=== PATIENT | female | born 1940 | race Caucasian/White ===

== ENCOUNTER → 2017-05-25 | Outpatient (CLI) | payer MEDICARE ==
[~2017-05-25] MED LIST: ATORVASTATIN CA10 MG PO; BENICAR40 MG PO; NAPROXEN250 MG PO; NEXIUM40 MG PO; OCUVITE SOFTGE1 EACH PO; ULTRAM 50MG50 MG PO; VALACYCLOVIR500 MG PO
--- NOTE | 2017-05-25 14:30 | Diagnostic Imaging Report ---
PROCEDURE:HAND RIGHT 3 VIEWS TECHNIQUE:AP, lateral and oblique views right hand INDICATION:Right hand pain COMPARISON:None. FINDINGS: The right hand is intact. Marked joint space narrowing with osteophytosis and sclerosis at the base of the thumb. Joint space narrowing at the distal interphalangeal joints and metacarpophalangeal joints without juxta-articular erosion or periosteal reaction. Mild diffuse demineralization. Scapholunate joint widening. Regional soft tissue swelling over the dorsal aspect of the distal metacarpals. CONCLUSION: 1. Soft tissue swelling at the dorsal aspect of the hand without subcutaneous emphysema or foreign body. 2. 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 3. Mild scapholunate joint widening suggesting ligamentous laxity. 4. No evidence of fracture, traumatic malalignment or osteomyelitis. No foreign bodies. Dictated by: Marquez Ybarra M.D. on 05/25/2017 at 14:39 Electronically approved by: Marquez Ybarra M.D. on 05/25/2017 at 14:39
== END ==
LOC: RAD 13:10
PROVIDERS: ATTEND Family Medicine
DX: M79.641 Pain in right hand (principal)

== ENCOUNTER 2017-06-16 14:00 | Outpatient (RCR) | payer MEDICARE | END 2017-06-17 | LOC: OT 14:00 | PROVIDERS: ATTEND Specialist | DX: M19.031 Primary osteoarthritis, right wrist (principal); S60.221A Contusion of right hand, initial encounter | CPT/HCPCS: 97010 ×3; 97022; 97110 ×4; 97140 ×5; 97165; G8987; G8988 ==

== ENCOUNTER 2017-06-26 12:00 | Outpatient (RCR) | payer MEDICARE | END 2017-07-18 | LOC: OT 12:00 | PROVIDERS: ATTEND Specialist | DX: M19.031 Primary osteoarthritis, right wrist (principal); S60.221A Contusion of right hand, initial encounter | CPT/HCPCS: 97139 ==

== ENCOUNTER 2021-05-09 17:04 | Inpatient (IN) | payer MEDICARE ==
[~2021-05-09] VITALS: Ht 160 cm; Wt 59.0 kg
[2021-05-09] MEDS ORDERED: FAMOTIDINE 20 MG/2 ML VIAL IV STA (17:58)
[2021-05-09] MEDS ORDERED: ONDANSETRON HCL INJ 2MG/ML 2ML 2 MG/ML VIAL IV STA (17:58)
[2021-05-09] MEDS ORDERED: SODIUM CHLORIDE 0.9% 1000ML 1,000 ML IV SCH (18:00)
[2021-05-09] MEDS ORDERED: IOPAMIDOL 370 MG/ML 200 ML INFUS..BTL INJ ONE (18:16)
[2021-05-09] MEDS ORDERED: SODIUM CHLORIDE 0.9% 1000ML 1,000 ML ONE (20:17)
[2021-05-09] MEDS: SODIUM CHLORIDE 0.9% 1000ML 1,000 ML IV SCH ×2 (20:52→23:30)
[2021-05-09 21:00] VITALS: BP 92/59
[2021-05-09] MEDS ORDERED: SODIUM CHLORIDE 0.9% 1000ML 1,000 ML IV ONE (22:15)
[2021-05-09 23:11] VITALS: BP 107/70
[2021-05-09 23:30] VITALS: BP 107/70
[2021-05-10] VITALS (8 sets, daily range): BP systolic 92–113; BP diastolic 59–83
[2021-05-10] MEDS ORDERED: CITALOPRAM HBR20 MG PO (02:47)
[2021-05-10] MEDS ORDERED: PROAIR HFA INH8.5 GM (02:47)
[2021-05-10] MEDS ORDERED: PROMETHAZINE HC25 M1 PO (02:47)
[2021-05-10] MEDS ORDERED: OLMESARTAN MEDO20 MG PO (02:47)
[2021-05-10] MEDS ORDERED: DOXYCYCLINE MO100 MG PO (02:47)
[2021-05-10] MEDS ORDERED: CLARITIN10 M4 PO (02:47)
[2021-05-10] MEDS ORDERED: CITALOPRAM10 MG/5 ML PO ×3 (02:47→02:56)
[2021-05-10] MEDS ORDERED: CELEXA10 MG PO (02:56)
[2021-05-10 07:44] LABS: BASOPHILS % 0.1 % (0.0-1.0); EOSINOPHILS % 0.4 % (0.0-6.0); HEMATOCRIT 30.4 % (34.2-44.1); HEMOGLOBIN 9.8 g/dL (12.0-16.0); LYMPHOCYTES # (AUTO) 2.2 (1.0-3.2); LYMPHOCYTES % 27.3 % (18.0-39.1); MEAN CORPUSCULAR HGB CONC 32.2 g/dL (31-35); MONOCYTES # (AUTO) 0.9 (0.2-0.8); MONOCYTES % 11.1 % (4.4-11.3); NEUTROPHILS # (AUTO) 4.7 (2.1-6.9); NEUTROPHILS % 60.2 % (38.7-80.0); PLATELET COUNT 257 x10e3/uL (140-360); RED BLOOD COUNT 3.27 x10e6/uL (3.6-5.1); RED CELL DISTRIBUTION WIDTH 14.5 % (11.7-14.4)
[2021-05-10 08:03] LABS: ANION GAP 10.9 mmol/L (8-16); CREATININE, SERUM 2.68 mg/dL (0.57-1.11); POTASSIUM 4.9 mmol/L (3.5-5.1)
[2021-05-10] MEDS: SODIUM CHLORIDE 0.9% 1000ML 1,000 ML IV SCH (08:38)
[2021-05-10] MEDS ORDERED: ALBUTEROL SULFATE HFA 8GM INHALATION AEROSOL INH PRN (13:45)
[2021-05-10] MEDS ORDERED: REMDESIVIR 100MG 200 MG in SODIUM CHLORIDE 0.9% 100 ML IV ONE (14:30)
[2021-05-10] MEDS ORDERED: LORATADINE 10 MG PO SCH (14:30)
[2021-05-10] MEDS ORDERED: LORATADINE 10 MG TAB PO PRN (14:30)
[2021-05-10] MEDS ORDERED: DEXAMETHASONE 4 MG TAB PO SCH (15:00)
[2021-05-10] MEDS: ENOXAPARIN SOD INJ 40 MG/0.4 ML SYR SC SCH (16:46)
[2021-05-10] MEDS ORDERED: DOXYCYCLINE MONOHYDRATE 100 MG PO SCH (17:00)
[2021-05-10] MEDS: SODIUM BICARBONATE 650 MG TAB PO SCH (17:33)
[2021-05-10] MEDS: DOXYCYCLINE HYCLATE TABLET 100 MG TAB PO SCH ×2 (17:33→21:00)
[2021-05-10] MEDS: ATORVASTATIN 10 MG TAB PO SCH (20:57)
[2021-05-11] VITALS (9 sets, daily range): BP systolic 103–126; BP diastolic 61–87
[2021-05-11] MEDS: SODIUM CHLORIDE 0.9% 1000ML 1,000 ML IV SCH ×4 (02:38→21:24)
[2021-05-11 06:56] LABS: CREATININE, SERUM 1.79 mg/dL (0.57-1.11); POTASSIUM 4.5 mmol/L (3.5-5.1)
[2021-05-11 07:07] LABS: ANION GAP 11.5 mmol/L (8-16); CALCIUM 8.2 mg/dL (8.4-10.2)
[2021-05-11] MEDS ORDERED: CITALOPRAM HYDROBROMIDE 20 MG TAB PO SCH (09:00)
[2021-05-11] MEDS: DOXYCYCLINE HYCLATE TABLET 100 MG TAB PO SCH ×2 (10:04→20:20)
[2021-05-11] MEDS: SODIUM BICARBONATE 650 MG TAB PO SCH ×2 (10:04→17:26)
[2021-05-11] MEDS: CITALOPRAM HYDROBROMIDE 20 MG TAB PO SCH (10:04)
[2021-05-11] MEDS: VALACYCLOVIR HCL 500 MG TAB PO SCH (10:04)
[2021-05-11] MEDS: REMDESIVIR 100MG 100 MG in SODIUM CHLORIDE 0.9% 100 ML IV SCH (14:28)
[2021-05-11 16:20] LABS: ANION GAP 12.5 mmol/L (8-16); CALCIUM 8.2 mg/dL (8.4-10.2); CREATININE, SERUM 1.41 mg/dL (0.57-1.11); POTASSIUM 4.5 mmol/L (3.5-5.1)
[2021-05-11] MEDS: ENOXAPARIN SOD INJ 40 MG/0.4 ML SYR SC SCH (17:26)
[2021-05-11] MEDS: ATORVASTATIN 10 MG TAB PO SCH (20:20)
[2021-05-12] VITALS (7 sets, daily range): BP systolic 133–154; BP diastolic 82–91
[2021-05-12] MEDS: SODIUM CHLORIDE 0.9% 1000ML 1,000 ML IV SCH ×3 (04:18→21:33)
[2021-05-12] MEDS: ONDANSETRON HCL INJ 2MG/ML 2ML 2 MG/ML VIAL IV PRN ×2 (04:32→04:50)
[2021-05-12 07:19] LABS: ANION GAP 9.6 mmol/L (8-16); CREATININE, SERUM 1.13 mg/dL (0.57-1.11); POTASSIUM 4.6 mmol/L (3.5-5.1)
[2021-05-12] MEDS: VALACYCLOVIR HCL 500 MG TAB PO SCH (08:04)
[2021-05-12] MEDS: CITALOPRAM HYDROBROMIDE 20 MG TAB PO SCH (08:04)
[2021-05-12] MEDS: SODIUM BICARBONATE 650 MG TAB PO SCH ×2 (08:04→17:45)
[2021-05-12] MEDS: DOXYCYCLINE HYCLATE TABLET 100 MG TAB PO SCH ×2 (08:04→21:14)
[2021-05-12] MEDS ORDERED: VANCOMYCIN 250MG/5ML ORAL SOLN PO SCH (12:00)
[2021-05-12] MEDS: METRONIDAZOLE 500 MG TAB PO SCH ×2 (13:50→21:14)
[2021-05-12] MEDS: REMDESIVIR 100MG 100 MG in SODIUM CHLORIDE 0.9% 100 ML IV SCH (13:50)
[2021-05-12] MEDS: ENOXAPARIN SOD INJ 40 MG/0.4 ML SYR SC SCH (17:45)
[2021-05-12] MEDS: ATORVASTATIN 10 MG TAB PO SCH (21:14)
[2021-05-13] VITALS (7 sets, daily range): BP systolic 122–131; BP diastolic 62–92
[2021-05-13] MEDS: ONDANSETRON HCL INJ 2MG/ML 2ML 2 MG/ML VIAL IV PRN ×4 (02:47→21:26)
[2021-05-13 06:40] LABS: ANION GAP 10.8 mmol/L (8-16); CALCIUM 7.9 mg/dL (8.4-10.2); CREATININE, SERUM 0.94 mg/dL (0.57-1.11); POTASSIUM 3.8 mmol/L (3.5-5.1)
[2021-05-13] MEDS: METRONIDAZOLE 500 MG TAB PO SCH ×3 (06:45→21:26)
[2021-05-13 07:17] LABS: BASOPHILS % 0.3 % (0.0-1.0); EOSINOPHILS # (AUTO) 0.1 (0.0-0.4); EOSINOPHILS % 0.9 % (0.0-6.0); HEMATOCRIT 32.1 % (34.2-44.1); HEMOGLOBIN 10.4 g/dL (12.0-16.0); LYMPHOCYTES # (AUTO) 1.8 (1.0-3.2); LYMPHOCYTES % 26.8 % (18.0-39.1); MEAN CORPUSCULAR HEMOGLOBIN 29.6 pg (28-32); MEAN CORPUSCULAR HGB CONC 32.4 g/dL (31-35); MEAN CORPUSCULAR VOLUME 91.5 fL (81-99); MONOCYTES # (AUTO) 0.9 (0.2-0.8); MONOCYTES % 12.6 % (4.4-11.3); NEUTROPHILS % 58.7 % (38.7-80.0); PLATELET COUNT 258 x10e3/uL (140-360); RED BLOOD COUNT 3.51 x10e6/uL (3.6-5.1); RED CELL DISTRIBUTION WIDTH 14.8 % (11.7-14.4)
[2021-05-13] MEDS: CITALOPRAM HYDROBROMIDE 20 MG TAB PO SCH (08:04)
[2021-05-13] MEDS: DOXYCYCLINE HYCLATE TABLET 100 MG TAB PO SCH ×2 (08:04→21:26)
[2021-05-13] MEDS: SODIUM BICARBONATE 650 MG TAB PO SCH ×2 (08:04→16:44)
[2021-05-13] MEDS: SODIUM CHLORIDE 0.9% 1000ML 1,000 ML IV SCH ×2 (08:04→14:02)
[2021-05-13] MEDS: VALACYCLOVIR HCL 500 MG TAB PO SCH (08:04)
[2021-05-13] MEDS: REMDESIVIR 100MG 100 MG in SODIUM CHLORIDE 0.9% 100 ML IV SCH (14:00)
[2021-05-13] MEDS: ENOXAPARIN SOD INJ 40 MG/0.4 ML SYR SC SCH (16:44)
[2021-05-13] MEDS: ATORVASTATIN 10 MG TAB PO SCH (21:26)
[2021-05-14] VITALS (8 sets, daily range): BP systolic 115–141; BP diastolic 81–95
[2021-05-14] MEDS: SODIUM CHLORIDE 0.9% 1000ML 1,000 ML IV SCH ×2 (02:39→16:45)
[2021-05-14] MEDS: ONDANSETRON HCL INJ 2MG/ML 2ML 2 MG/ML VIAL IV PRN ×3 (05:09→17:53)
[2021-05-14] MEDS: METRONIDAZOLE 500 MG TAB PO SCH ×2 (06:02→14:15)
[2021-05-14] MEDS: SODIUM BICARBONATE 650 MG TAB PO SCH ×2 (08:10→17:53)
[2021-05-14] MEDS: CITALOPRAM HYDROBROMIDE 20 MG TAB PO SCH (08:10)
[2021-05-14] MEDS: VALACYCLOVIR HCL 500 MG TAB PO SCH (08:10)
[2021-05-14] MEDS: DOXYCYCLINE HYCLATE TABLET 100 MG TAB PO SCH (08:10)
[2021-05-14] MEDS: CHOLESTYRAMINE 4 GM PACKET PO PRN ×2 (13:00→16:52)
[2021-05-14] MEDS: REMDESIVIR 100MG 100 MG in SODIUM CHLORIDE 0.9% 100 ML IV SCH (14:15)
[2021-05-14] MEDS: ENOXAPARIN SOD INJ 40 MG/0.4 ML SYR SC SCH (17:53)
[2021-05-14] MEDS: ATORVASTATIN 10 MG TAB PO SCH (20:44)
[2021-05-15] VITALS: BP 128/77
[2021-05-15] MEDS: ONDANSETRON HCL INJ 2MG/ML 2ML 2 MG/ML VIAL IV PRN
[2021-05-15 04:00] VITALS: BP 128/75
[2021-05-15] MEDS: SODIUM CHLORIDE 0.9% 1000ML 1,000 ML IV SCH (05:07)
[2021-05-15 08:26] VITALS: BP 135/87
[2021-05-15 09:12] VITALS: BP 130/85
[2021-05-15] MEDS: CITALOPRAM HYDROBROMIDE 20 MG TAB PO SCH (09:30)
[2021-05-15] MEDS: SODIUM BICARBONATE 650 MG TAB PO SCH (09:31)
[2021-05-15 12:05] VITALS: BP 151/86
== END 2021-05-15 14:15 | disposition home or self-care (01) | DRG 178 ==
LOC: FSED 18:00 → ERHOLD 20:48 → IMCU 22:43 → OBSVTOIN 05-12 15:21
PROVIDERS: ADMIT Internal Medicine; ATTEND Internal Medicine
PROC: XW033E5 Introduction of Remdesivir Anti-infective into Peripheral Vein, Percutaneous Approach, New Technology Group 5 (ICD-10-PCS; 2021-05-10)
PROC: 8E0ZXY6 Isolation (ICD-10-PCS; principal; 2021-05-12)
DX: U07.1 COVID-19 (principal); N17.9 Acute kidney failure, unspecified; E87.2 Acidosis; E78.5 Hyperlipidemia, unspecified; I12.9 Hypertensive chronic kidney disease with stage 1 through stage 4 chronic kidney disease, or unspecified chronic kidney disease; N18.9 Chronic kidney disease, unspecified; R19.7 Diarrhea, unspecified; R11.2 Nausea with vomiting, unspecified; K52.9 Noninfective gastroenteritis and colitis, unspecified; T84.629D Infection and inflammatory reaction due to internal fixation device of unspecified bone of leg, subsequent encounter; Z88.5 Allergy status to narcotic agent; Z88.0 Allergy status to penicillin; Z88.8 Allergy status to other drugs, medicaments and biological substances; Z91.040 Latex allergy status; Z96.651 Presence of right artificial knee joint
CPT/HCPCS: 36415; 74176; 76770; 80048; 80076; 81003; 82553; 83993; 84484; 85025; 87045; 87493; 96360; 96361; 96374; 96375; 99251; 99284; G0378; J0248; J1650; J2405; J7030; J7050; Q9967; U0002